=== PATIENT | male | born 2000 | race Caucasian/White ===

== ENCOUNTER 2020-06-27 04:05 | Emergency (ER) | payer OTHER ==
[2020-06-27] MEDS ORDERED: Bacitracin 1 PK ONE (04:52)
[2020-06-27] MEDS ORDERED: Boostrix 0.5 ML (Tdap) VIAL ONE (04:52)
== END 2020-06-27 05:14 | disposition home or self-care (01) ==
LOC: ERS 04:05
DX: S61.011A Laceration without foreign body of right thumb without damage to nail, initial encounter (principal); Z23 Encounter for immunization; W26.8XXA Contact with other sharp object(s), not elsewhere classified, initial encounter
CPT/HCPCS: 90471; 90715